=== PATIENT | female | born 1955 | race Caucasian/White ===

== ENCOUNTER 2016-06-30 23:08 | Inpatient (IN) | payer MEDICAID, OTHER ==
[~2016-06-30] VITALS: Ht 165.1 cm; Wt 76.8 kg
[~2016-06-30 23:08] MED LIST: MULT-332
[2016-06-30 23:34] VITALS: Ht 165.1 cm; Wt 76.8 kg
[2016-06-30 23:45] VITALS: BP 137/66; PULSE 70; RESP 18
[2016-07-01] MEDS ORDERED: GABA300C16 PO (00:03)
[2016-07-01] MEDS ORDERED: LANT3I SC (00:03)
[2016-07-01] MEDS ORDERED: ACETAMINOPHEN 500 MG TAB PO PRN (00:30)
[2016-07-01] MEDS: GABAPENTIN 300 MG CAP PO SCH ×2 (00:46→21:10)
[2016-07-01 01:00] VITALS: BP 137/66; RESP 18
[2016-07-01] MEDS ORDERED: DEXTROSE 50% 50 ML SYRINGE IV PRN ×2 (01:00)
[2016-07-01] MEDS ORDERED: GLUCAGON 1 MG INJ IM PRN (01:00)
[2016-07-01] MEDS ORDERED: GLUCOSE GEL 15 GRAM TUBE PO PRN ×2 (01:00)
[2016-07-01] MEDS ORDERED: GLUCOSE GEL 15 GRAM TUBE BUCCAL PRN (01:00)
--- NOTE | 2016-07-01 02:38 | HP ---
Date/Time of Note Date/Time of Note DATE: 07/01/16 TIME: 02:31 Assessment/Plan VTE Prophylaxis VTE Prophylaxis Intervention: ambulation Lines/Catheters IV Catheter Type (from Nrsg): Saline Lock Urinary Cath still in place: Yes Reason Cath still needed: urinary retention, other (indicate) (Neurogenic Bladder - Palacio just placed on 06/28.) Assessment/Plan Assessment/Plan 1) Urinary Retention due to Neurogenic Bladder due to Uncontrolled Diabetes Mellitis - Patient should be able to follow-up with her Personal Care Home Administrator as an outpatient. - The Palacio should stay in for an extended period of time, 2 to 4 weeks, before removing it. And when it is removed, patient should have another kit, just in case she is not able to urinate in a reasonable time, while still at the urologist's office, so that it can be replaced. If it is successfully removed, then being on an alpha lorraine daily may be helpful. - Need to get DM much better controlled, and with an A1c of 15, that will require Insulin. Patient may need to see her PCP for additional education, support and on-going care. HPI/ROS Admit Date/Time Admit Date/Time Jun 30, 2016 at 23:08 Hx of Present Illness Patient is transferred to us from [facility] for Urinary Retention. The following paragraph is from patient's discharge summary/transfer note on 06/30/16. Additional problems include Acute Kidney Injury (with change of Creatinine from 0.5 to 5.87. Previously admitted for urinary retention attributed to autonomic dysfunction inn the setting of long-standing, undiagnosed and untreated DM. Palacio replaced this admission after discontinuation at primary urologist's clinic for unclear reason/indication. Continue indwelling palacio catheter x 2 weeks to help bladder decompress, follow-up with primary urologist around 07/13 to determine next plan. Encourage PO intake in the setting of post-obstructive diuresis. Better glycemic control - see above. ; Hyperkalemia, resolved. ( Patient indorsed not urinating x5 days, Cr elevated. Also with constipation, no BM x 5 days that likely is contributing to hyperkalemia. EKG stable, no peaked T -waves, no ME prolongation. Patient transiently developed hypokalemia in setting of high output autodiuresis, which resolved with repletion.); Hyponatremia (121->122: unknown duration, 06/20 Na+ WNL though on prior admission she was also hyponatremic in the setting of urinary retention, Likely due to overload in the setting of urinary retention. Sodium normalized in 6 H in the setting of diuresis and only half normal saline boluses were used to prevent over-correction.), Poorly Controlled DM (last Hgb A1c = 15. Not taking Metformin at home. Likely with neurogenic bladder. Patient was educated on how to administer subcutaneous insulin. - will discharge with metformin BID and lantus. ); Lower Extremity Swelling (Likely due to volume overload from renal compromise due to obstruction. No chest pain, SOB, no cardiac symptoms, no lung crackles, unlikely cardiac. Symmetric. No calf pain, no immobility, unlikely DVT.) ; Acid Reflux(Likely worsened by distended bladder and colon full of stool ); Constipation (Resolved with Lactulose. No SBO). And what brought patient to [facility] on 06/28 was that an outside clinic removed her palacio catheter but did not give her any other treatment she had reported minimal urine flow, and none for the past 5 days. That original catheter was placed last month for acute urinary retention due to neurogenic bladder from uncontrolled DM ROS Constitutional: No chills, No febrile Eyes: No visual change Respiratory: No shortness of breath Cardiovascular: edema (Never as bad as it was on admission to [facility].), No chest pain, No palpitations Genitourinary: other (Seen at another clinic, approximately 06/24/16, for dysuria , suprapubic pain and hematuria. She as prescribed an antibiotic.) Neurologic: dizziness (intermittent), No focal-weakness, No headache, No other (numbness) PMH/Family/Social Past Surgical History Past Surgical Hx: other (Cesarian Section x 4) Family History Significant Family History: no pertinent family hx Social History . Lives with and children in [place]. Alcohol Use: none Smoking Status: Never smoker Drug Use: none Exam/Review of Systems Vital Signs Vitals Vital Signs Date Time Temp Pulse Resp B/P Pulse Ox O2 Delivery O2 Flow Rate FiO2 06/30/16 23:45 98.3 70 18 137/66 99 Room Air Exam Constitutional: alert, oriented, well developed Head: atraumatic, normocephalic Eyes: nl sclera ENMT: mucosa pink and moist, nl external ears & nose, nl lips & teeth Neck: non-tender, supple Respiratory: clear to auscultation, normal air movement Cardiovascular: nl pulses, regular rate and rhythm Gastrointestinal: nl liver, spleen, non-tender, soft Musculoskeletal: nl extremities to inspection Extremities: normal pulses Neurological: INSURANCE VERIFY REP II-XII intact (grossly), nl speech Lymph: nl lymph nodes (Cervical) Medications Medications Current Medications Diagnostic Test (Pha) (Accucheck) 1 ea 02 XX ; Start 07/02/16 at 02:00 Acetaminophen (Tylenol Tab) 1,000 mg Q6H PRN PO PAIN AND OR ELEVATED TEMP Last administered on 07/01/16 00:46; Admin Dose 1,000 MG; Start 07/01/16 at 00:30 Insulin Glargine (Lantus) 10 unit DAILY SC ; Start 07/01/16 at 09:00 Miscellaneous Information 1 ea NOTE XX ; Start 07/01/16 at 01:00 Glucose (Glutose) 15 gm Q15M PRN PO DECREASED GLUCOSE; Start 07/01/16 at 01:00 Glucose (Glutose) 22.5 gm Q15M PRN PO DECREASED GLUCOSE; Start 07/01/16 at 01: 00 Dextrose (D50w Syringe) 25 ml Q15M PRN IV DECREASED GLUCOSE; Start 07/01/16 at 01:00 Dextrose (D50w Syringe) 50 ml Q15M PRN IV DECREASED GLUCOSE; Start 07/01/16 at 01:00 Glucagon (Glucagen) 1 mg Q15M PRN IM DECREASED GLUCOSE; Start 07/01/16 at 01:00 Glucose (Glutose) 15 gm Q15M PRN BUCCAL DECREASED GLUCOSE; Start 07/01/16 at 01 :00 Gabapentin (Neurontin) 300 mg QHS PO Last administered on 07/01/16 00:46; Admin Dose 300 MG; Start 07/01/16 at 00:40 SHARAN JORGE DO Jul 01, 2016 02:37
[2016-07-01] MEDS ORDERED: METOCLOPRAMIDE 10 MG INJ IV PRN (03:00)
[2016-07-01] MEDS ORDERED: NACL 0.9% 3 ML SYG IV SCH (03:00)
[2016-07-01] MEDS ORDERED: ACETAMINOPHEN 325 MG TAB PO PRN (03:00)
[2016-07-01] MEDS ORDERED: ONDANSETRON 4 MG TAB PO PRN (03:00)
[2016-07-01 07:29] LABS: ADD SCAN DIFF NO
[2016-07-01 07:32] LABS: BASOPHILS % 0.5 % (0.0-2.0); EOSINOPHILS # 0.2 10^3/ul (0.0-0.5); HEMOGLOBIN 10.4 g/dl (12.0-16.0); LYMPHOCYTES # 1.8 10^3/ul (0.8-2.9); LYMPHOCYTES % 33.2 % (15.0-51.0); MEAN CORPUSCULAR HEMOGLOBIN 31.8 pg (29.0-33.0); MEAN CORPUSCULAR HGB CONC 33.5 g/dl (32.0-37.0); MEAN CORPUSCULAR VOLUME 94.8 fl (82.0-101.0); MONOCYTE # 0.6 10^3/ul (0.3-0.9); MONOCYTES % 9.9 % (0.0-11.0); NEUTROPHIL # 2.9 10^3/ul (1.6-7.5); PLATELET COUNT 279 10^3/UL (140-415); RED BLOOD COUNT 3.27 10^6/ul (4.20-5.40); RED CELL DISTRIBUTION WIDTH 11.1 % (11.5-14.5); WHITE BLOOD COUNT 5.5 10^3/ul (4.8-10.8)
[2016-07-01 07:51] LABS: POTASSIUM 3.8 mmol/L (3.5-5.1)
[2016-07-01 07:53] LABS: CREATININE 0.54 mg/dl (0.44-1.00)
[2016-07-01 07:54] LABS: CALCIUM 8.4 mg/dl (8.4-10.2)
[2016-07-01] MEDS: INSULIN ASPART [NOVOLOG] 3 ML PEN SC SCH ×4 (08:00→20:28)
[2016-07-01 08:23] VITALS: BP 124/64; RESP 17; RESP 62
[2016-07-01] MEDS ORDERED: GABAPENTIN 300 MG CAP PO SCH (09:00)
[2016-07-01] MEDS: INSULIN GLARGINE [LANtus] 3 ML PEN SC SCH (10:09)
--- NOTE | 2016-07-01 14:44 | PN ---
Date/Time of Note Date/Time of Note DATE: 07/01/16 TIME: 14:23 Assessment/Plan VTE Prophylaxis VTE Prophylaxis Intervention: SCD's Lines/Catheters IV Catheter Type (from Nrs): Saline Lock Urinary Cath still in place: Yes Reason Cath still needed: urinary retention Assessment/Plan Assessment/Plan 1. Urinary retention due to Neurogenic Bladder, will be discharged with [place] and follow up with urologist 2. Obstructive uropathy with acute renal failure, resolved with [place] 3. DM, on insulin Subjective 24 Hr Interval Summary Free Text/Dictation leg swelling is better no distress Exam/Review of Systems Vital Signs Vitals Vital Signs Date Time Temp Pulse Resp B/P Pulse Ox O2 Delivery O2 Flow Rate FiO2 07/01/16 08:23 98.4 62 62 124/64 97 06/30/16 23:45 Room Air Intake and Output 06/30/16 06/30/16 07/01/16 15:00 23:00 07:00 Intake Total 240 ml Output Total 450 ml Balance -210 ml Exam Constitutional: alert, oriented, well developed Psych: nl mood/affect, no complaints Head: atraumatic, normocephalic Eyes: EOMI, nl conjunctiva, nl lids ENMT: nl external ears & nose, nl lips & teeth, nl nasal mucosa & septum Neck: non-tender, supple Respiratory: clear to auscultation, normal air movement, No congested cough, No crackles/rales, No diminished breath sounds, No intercostal retraction, No labored breathing, No other, No respirations, No tactile fremitus, No wheezing Cardiovascular: regular rate and rhythm, No S3, No S4, No bruits, No diastolic murmur, No edema, No gallop, No irregular rhythm, No jugular venous distention (JVD), No murmurs/extra sounds, No nl pulses, No other, No rub, No systolic murmur Gastrointestinal: nl liver, spleen, non-tender, soft, No ascites, No bowel sounds, No distended, No firm, No hepatomegaly, No mass , No other, No rebound or guarding, No splenomegaly, No surgical scars, No tender Musculoskeletal: nl extremities to inspection Extremities: edema (mild edema on both lower extremities below the knees), normal pulses, No calf tenderness, No clubbing, No cyanosis, No other, No palpable cord, No pitting pedal edema, No tenderness Neurological: MANDREL CLEANER II-XII intact, nl mental status, nl speech, nl strength Skin: nl turgor Results Result Diagram: 07/01/16 0607/01/16 0617 Results 24 hrs Laboratory Tests Test 07/01/16 06:17 07/01/16 08:04 07/01/16 11:54 Anion Gap 11 Basophils # 0.0 Basophils % 0.5 Blood Urea Nitrogen 10 Calcium Level 8.4 Carbon Dioxide Level 29 Chloride Level 107 Creatinine 0.54 Eosinophils # 0.2 Eosinophils % 4.0 Glucose Level 104 Hematocrit 31.0 L Hemoglobin 10.4 L Lymphocytes # 1.8 Lymphocytes % 33.2 Mean Corpuscular Hemoglobin 31.8 Mean Corpuscular Hemoglobin Concent 33.5 Mean Corpuscular Volume 94.8 Mean Platelet Volume 9.0 Monocytes # 0.6 Monocytes % 9.9 Neutrophils # 2.9 Neutrophils % 52.0 Nucleated Red Blood Cells # 0.0 Nucleated Red Blood Cells % 0.0 Platelet Count 279 Potassium Level 3.8 Red Blood Count 3.27 L Red Cell Distribution Width 11.1 L Sodium Level 143 White Blood Count 5.5 Bedside Glucose 108 123 Medications Medications Current Medications Diagnostic Test (Pha) (Accucheck) 1 ea 02 XX ; Start 07/02/16 at 02:00 Acetaminophen (Tylenol Tab) 1,000 mg Q6H PRN PO PAIN AND OR ELEVATED TEMP Last administered on 07/01/16 00:46; Admin Dose 1,000 MG; Start 07/01/16 at 00:30 Insulin Glargine (Lantus) 10 unit DAILY SC Last administered on 07/01/16 10:09 ; Admin Dose 10 UNIT; Start 07/01/16 at 09:00 Miscellaneous Information 1 ea NOTE XX ; Start 07/01/16 at 01:00 Glucose (Glutose) 15 gm Q15M PRN PO DECREASED GLUCOSE; Start 07/01/16 at 01:00 Glucose (Glutose) 22.5 gm Q15M PRN PO DECREASED GLUCOSE; Start 07/01/16 at 01: 00 Dextrose (D50w Syringe) 25 ml Q15M PRN IV DECREASED GLUCOSE; Start 07/01/16 at 01:00 Dextrose (D50w Syringe) 50 ml Q15M PRN IV DECREASED GLUCOSE; Start 07/01/16 at 01:00 Glucagon (Glucagen) 1 mg Q15M PRN IM DECREASED GLUCOSE; Start 07/01/16 at 01:00 Glucose (Glutose) 15 gm Q15M PRN BUCCAL DECREASED GLUCOSE; Start 07/01/16 at 01 :00 Gabapentin (Neurontin) 300 mg QHS PO Last administered on 07/01/16t 00:46; Admin Dose 300 MG; Start 07/01/16 at 00:40 Ondansetron HCl (Zofran Tab) 4 mg Q6H PRN PO NAUSEA AND/OR VOMITING; Start 02/07 at 03:00 Metoclopramide HCl (Reglan) 10 mg Q6H PRN IV NAUSEA AND/OR VOMITING; Start 02/07 at 03:00 Acetaminophen (Tylenol Tab) 650 mg Q6H PRN PO PAIN LEVEL 1-3 OR FEVER; Start at 03:00 GORDON TOTH MD Jul 01, 2016 14:34
[2016-07-01 20:04] VITALS: BP 127/64; RESP 17
[2016-07-02] MEDS: ACCUCHECK XX SCH (00:14)
[2016-07-02 06:29] LABS: POTASSIUM 3.8 mmol/L (3.5-5.1)
[2016-07-02 06:32] LABS: CREATININE 0.61 mg/dl (0.44-1.00)
[2016-07-02 06:33] LABS: CALCIUM 8.8 mg/dl (8.4-10.2)
[2016-07-02 07:40] VITALS: BP 129/63; RESP 16
[2016-07-02] MEDS: INSULIN ASPART [NOVOLOG] 3 ML PEN SC SCH ×4 (07:55→20:15)
[2016-07-02] MEDS: INSULIN GLARGINE [LANtus] 3 ML PEN SC SCH (08:59)
--- NOTE | 2016-07-02 10:30 | PN ---
Date/Time of Note Date/Time of Note DATE: 07/02/16 TIME: 10:27 Assessment/Plan VTE Prophylaxis VTE Prophylaxis Intervention: other Lines/Catheters [facility] Saline Lock Urinary Cath still in place: Yes Reason Cath still needed: urinary retention Assessment/Plan Problems: (1) Urinary retention Status: Acute Comment: The etiology of this is unclear and is been labeled as being part of neurogenic bladder due to diabetes. Reportedly she had a hemoglobin A1c of 15 but according the patient and her daughter she was a newly diagnosed diabetic a month ago. Her to have that degree of neurogenic bladder she should not have significantly other symptoms of diabetic neuropathy. She does not have any evidence of a peripheral neuropathy. I will check orthostatic vital signs but I am questioning this diagnosis as an etiology for the neurogenic bladder. (2) Hemorrhoids Status: Chronic Comment: Stable and not active Qualifiers: Hemorrhoid type: first degree Qualified Code: K64.0 - First degree hemorrhoids (3) Gastroesophageal reflux disease Status: Chronic Comment: Stable Qualifiers: Esophagitis presence: without esophagitis Qualified Code: K21.9 - Gastroesophageal reflux disease without esophagitis (4) Diabetes mellitus type 2 in nonobese Status: Chronic Comment: Her diabetes is remarkably well controlled on single agent therapy using a long-acting insulin. I will recheck her A1c. Ultimately she will need to have careful outpatient evaluation for the her medical problems. Subjective 24 Hr Interval Summary Free Text/Dictation Patient reports she is doing relatively okay. Constitutional: no complaints (No fever chills or sweats) Respiratory: no complaints Cardiovascular: no complaints Gastrointestinal: no complaints Genitourinary: no complaints Neurologic: other (Complains of pain in the lower extremities) Exam/Review of Systems Vital Signs Vitals Vital Signs Date Time Temp Pulse Resp B/P Pulse Ox O2 Delivery O2 Flow Rate FiO2 07/02/16 07:40 98.2 65 16 129/63 98 06/30/16 23:45 Room Air Intake and Output 07/01/16 07/01/16 07/02/16 15:00 23:00 07:00 Intake Total 1050 ml 400 ml Output Total 1500 ml 1300 ml Balance -450 ml -900 ml Exam Constitutional: alert, oriented Neck: non-tender, supple Respiratory: clear to auscultation, normal air movement Cardiovascular: nl pulses, regular rate and rhythm Neurological: ASSISTANT INFANT TEACHER II-XII intact, nl mental status, nl speech, nl strength, other (Patient has normal vibration in brush sensation in the lower extremities. ) Results Result Diagram: 07/01/16 0617 07/02/16 0503 Results 24 hrs Laboratory Tests Test 07/01/16 11:54 07/01/16 16:48 07/01/16 20:01 07/02/16 05:03 Bedside Glucose 123 140 191 Anion Gap 13 Blood Urea Nitrogen 15 Calcium Level 8.8 Carbon Dioxide Level 26 Chloride Level 110 Creatinine 0.61 Glucose Level 128 Potassium Level 3.8 Sodium Level 145 H Test 07/02/16 07:37 Bedside Glucose 116 Medications Medications Current Medications Diagnostic Test (Pha) (Accucheck) 1 ea 02 XX ; Start 07/02/16 at 02:00 Acetaminophen (Tylenol Tab) 1,000 mg Q6H PRN PO PAIN AND OR ELEVATED TEMP Last administered on 07/01/16 00:46; Admin Dose 1,000 MG; Start 07/01/16 at 00:30 Insulin Glargine (Lantus) 10 unit DAILY SC Last administered on 07/02/16 08:59 ; Admin Dose 10 UNIT; Start 07/01/16 at 09:00 Miscellaneous Information 1 ea NOTE XX ; Start 07/01/16 at 01:00 Glucose (Glutose) 15 gm Q15M PRN PO DECREASED GLUCOSE; Start 07/01/16 at 01:00 Glucose (Glutose) 22.5 gm Q15M PRN PO DECREASED GLUCOSE; Start 07/01/16 at 01: 00 Dextrose (D50w Syringe) 25 ml Q15M PRN IV DECREASED GLUCOSE; Start 07/01/16 at 01:00 Dextrose (D50w Syringe) 50 ml Q15M PRN IV DECREASED GLUCOSE; Start 07/01/16 at 01:00 Glucagon (Glucagen) 1 mg Q15M PRN IM DECREASED GLUCOSE; Start 07/01/16 at 01:00 Glucose (Glutose) 15 gm Q15M PRN BUCCAL DECREASED GLUCOSE; Start 07/01/16 at 01 :00 Gabapentin (Neurontin) 300 mg QHS PO Last administered on 07/01/16 21:10; Admin Dose 300 MG; Start 07/01/16 at 00:40 Ondansetron HCl (Zofran Tab) 4 mg Q6H PRN PO NAUSEA AND/OR VOMITING; Start 02/07 at 03:00 Metoclopramide HCl (Reglan) 10 mg Q6H PRN IV NAUSEA AND/OR VOMITING; Start 02/07 at 03:00 Acetaminophen (Tylenol Tab) 650 mg Q6H PRN PO PAIN LEVEL 1-3 OR FEVER; Start at 03:00 NAYA DOHERTY MD Jul 02, 2016 10:30
[2016-07-02 10:42] VITALS: BP 119/65; PULSE 64
[2016-07-02 10:45] VITALS: BP 145/64; PULSE 69
[2016-07-02] MEDS ORDERED: MAGNESIUM CITRATE 300 ML BTL PO ONE (13:30)
[2016-07-02 14:58] LABS: ADD UMIC YES; URINE BILIRUBIN (Dip) NEGATIVE (NEGATIVE); URINE BLOOD (Dip) 2+ (NEGATIVE); URINE COLOR LT. YELLOW (YELLOW); URINE KETONES (Dip) NEGATIVE (NEGATIVE); URINE LEUKOCYTE ESTERASE (Dip) 1+ (NEGATIVE); URINE NITRITE (Dip) NEGATIVE (NEGATIVE); URINE TOTAL PROTEIN (Dip) NEGATIVE (NEGATIVE); URINE UROBILINOGEN (Dip) 0.2 E.U./dL (0.1-1.0)
[2016-07-02 15:53] LABS: SQUAMOUS EPITHELIAL CELL,UR RARE; URINE RBCS 0-2 /HPF (0)
[2016-07-02] MEDS: GABAPENTIN 300 MG CAP PO SCH (20:14)
[2016-07-02 20:31] VITALS: BP 126/65; RESP 18
[2016-07-03] MEDS: ACCUCHECK XX SCH (02:00)
[2016-07-03 05:39] LABS: ADD SCAN DIFF NO
[2016-07-03 05:53] LABS: BASOPHILS % 0.4 % (0.0-2.0); EOSINOPHILS # 0.3 10^3/ul (0.0-0.5); EOSINOPHILS % 3.6 % (0.0-7.0); HEMATOCRIT 32.2 % (37.0-47.0); HEMOGLOBIN 10.7 g/dl (12.0-16.0); LYMPHOCYTES # 2.2 10^3/ul (0.8-2.9); LYMPHOCYTES % 32.4 % (15.0-51.0); MEAN CORPUSCULAR HEMOGLOBIN 31.2 pg (29.0-33.0); MEAN CORPUSCULAR HGB CONC 33.2 g/dl (32.0-37.0); MEAN CORPUSCULAR VOLUME 93.9 fl (82.0-101.0); MEAN PLATELET VOLUME 9.2 fl (7.4-10.4); MONOCYTE # 0.5 10^3/ul (0.3-0.9); MONOCYTES % 7.4 % (0.0-11.0); NEUTROPHIL # 3.8 10^3/ul (1.6-7.5); NEUTROPHILS % 55.8 % (39.0-77.0); PLATELET COUNT 310 10^3/UL (140-415); RED BLOOD COUNT 3.43 10^6/ul (4.20-5.40); RED CELL DISTRIBUTION WIDTH 11.3 % (11.5-14.5); WHITE BLOOD COUNT 6.9 10^3/ul (4.8-10.8)
[2016-07-03 05:56] LABS: CHOL/HDL RATIO 3.3 RATIO
[2016-07-03 05:57] LABS: ALBUMIN 2.8 g/dl (3.3-4.9); POTASSIUM 3.9 mmol/L (3.5-5.1)
[2016-07-03 05:59] LABS: CREATININE 0.56 mg/dl (0.44-1.00)
[2016-07-03 06:00] LABS: ALBUMIN/GLOBULIN RATIO 1.07; BILIRUBIN,INDIRECT 0.1 mg/dl (0-1.1); BILIRUBIN,TOTAL 0.1 mg/dl (0.2-1.3); TOTAL PROTEIN 5.4 g/dl (6.1-8.1)
[2016-07-03 06:01] LABS: CALCIUM 8.7 mg/dl (8.4-10.2)
[2016-07-03 06:12] LABS: T3 UPTAKE 35.2 % (23.5-40.5)
[2016-07-03 06:26] LABS: THYROID STIMULATING HORMONE 1.44 MIU/L (0.465-4.680)
[2016-07-03] MEDS: INSULIN ASPART [NOVOLOG] 3 ML PEN SC SCH ×4 (08:00→20:01)
[2016-07-03 08:14] VITALS: BP 115/56; RESP 16
[2016-07-03] MEDS: INSULIN GLARGINE [LANtus] 3 ML PEN SC SCH (09:02)
--- NOTE | 2016-07-03 09:42 | PN ---
Date/Time of Note Date/Time of Note DATE: 07/03/16 TIME: 09:40 Assessment/Plan VTE Prophylaxis VTE Prophylaxis Intervention: heparin Lines/Catheters IV Catheter Type (from Nrs): Saline Lock Urinary Cath still in place: Yes Reason Cath still needed: urinary retention Assessment/Plan Problems: (1) Diabetes mellitus type 2 in nonobese Status: Chronic Comment: Her blood sugar control on insulin-based protocol in a controlled diet situation is good by Accu-Cheks. However her A1c was 12.9 indicating that she has had not very good control in the recent past. The issue here is that the patient labeled as having neurogenic bladder who does not have evidence of sensory neuropathy and does not have orthostatic vital signs whether or not this bladder issue is due to diabetes. I have significant questions on that (2) Urinary retention Status: Acute Comment: We will try and get the MRI scan of the LS spine. If that can be done she will be discharged will follow up with her neurologist as an outpatient Subjective 24 Hr Interval Summary Respiratory: no complaints Cardiovascular: no complaints Gastrointestinal: no complaints Genitourinary: no complaints Exam/Review of Systems Vital Signs Vitals Vital Signs Date Time Temp Pulse Resp B/P Pulse Ox O2 Delivery O2 Flow Rate FiO2 07/03/16 08:14 98.3 76 16 115/56 94 06/30/16 23:45 Room Air Intake and Output 07/02/16 07/02/16 07/03/16 15:00 23:00 07:00 Intake Total 1110 ml 960 ml Output Total 2000 ml 1800 ml Balance -890 ml -840 ml Exam Constitutional: alert, oriented Respiratory: clear to auscultation, normal air movement Cardiovascular: nl pulses, regular rate and rhythm Gastrointestinal: nl liver, spleen, non-tender, soft Results Result Diagram: 07/03/16 0440 07/03/16 0440 Results 24 hrs Laboratory Tests Test 07/02/16 10:47 07/02/16 11:55 07/02/16 14:45 07/02/16 17:29 Hepatitis B Surface Antigen NEGATIVE Hepatitis C Antibody NEGATIVE Rapid Plasma Reagin NONREACTIVE Thyroid Stimulating Hormone (TSH) 1.740 Bedside Glucose 135 141 Urine Bilirubin NEGATIVE Urine Clarity CLEAR Urine Color LT. YELLOW Urine Glucose 0.1% H Urine Hemoglobin 2+ H Urine Ketones NEGATIVE Urine Leukocyte Esterase 1+ H Urine Microscopic RBC 0-2 Urine Microscopic WBC 2-5 Urine Nitrite NEGATIVE Urine Specific [place] <=1.005 L Urine Squamous Epithelial Cells RARE Urine Total Protein NEGATIVE Urine Urobilinogen 0.2 E.U./dL Urine pH 6.5 Test 07/02/16 20:12 07/03/16 04:40 07/03/16 08:21 Bedside Glucose 195 123 Alanine Aminotransferase (ALT/SGPT) 40 Albumin 2.8 L Albumin/Globulin Ratio 1.07 Alkaline Phosphatase 89 Anion Gap 14 Aspartate Amino Transf (AST/SGOT) 30 Basophils # 0.0 Basophils % 0.4 Blood Urea Nitrogen 13 Calcium Level 8.7 Carbon Dioxide Level 27 Chloride Level 108 Cholesterol Level 159 Cholesterol/HDL Ratio 3.3 Creatinine 0.56 Direct Bilirubin 0.00 Eosinophils # 0.3 Eosinophils % 3.6 Free Thyroxine Index 2.78 Globulin 2.60 Glucose Level 167 HDL Cholesterol 47 Hematocrit 32.2 L Hemoglobin 10.7 L Hemoglobin A1c 12.9 H Indirect Bilirubin 0.1 LDL Cholesterol, Calculated 89 Lymphocytes # 2.2 Lymphocytes % 32.4 Mean Corpuscular Hemoglobin 31.2 Mean Corpuscular Hemoglobin Concent 33.2 Mean Corpuscular Volume 93.9 Mean Platelet Volume 9.2 Monocytes # 0.5 Monocytes % 7.4 Neutrophils # 3.8 Neutrophils % 55.8 Nucleated Red Blood Cells # 0.0 Nucleated Red Blood Cells % 0.0 Platelet Count 310 Potassium Level 3.9 Red Blood Count 3.43 L Red Cell Distribution Width 11.3 L Sodium Level 145 H Thyroid Stimulating Hormone (TSH) 1.440 Thyroxine (T4) 7.9 Total Bilirubin 0.1 L Total Protein 5.4 L Triglycerides Level 115 Triiodothyronine (T3) Uptake 35.2 White Blood Count 6.9 # Medications Medications Current Medications Diagnostic Test (Pha) (Accucheck) 1 ea 02 XX Last administered on 07/03/16 02: 00; Admin Dose 1 EA; Start 07/02/16 at 02:00 Acetaminophen (Tylenol Tab) 1,000 mg Q6H PRN PO PAIN AND OR ELEVATED TEMP Last administered on 07/01/16 00:46; Admin Dose 1,000 MG; Start 07/01/16 at 00:30 Insulin Glargine (Lantus) 10 unit DAILY SC Last administered on 07/03/16 09:02 ; Admin Dose 10 UNIT; Start 07/01/16 at 09:00 Miscellaneous Information 1 ea NOTE XX ; Start 07/01/16 at 01:00 Glucose (Glutose) 15 gm Q15M PRN PO DECREASED GLUCOSE; Start 07/01/16 at 01:00 Glucose (Glutose) 22.5 gm Q15M PRN PO DECREASED GLUCOSE; Start 07/01/16 at 01: 00 Dextrose (D50w Syringe) 25 ml Q15M PRN IV DECREASED GLUCOSE; Start 07/01/16 at 01:00 Dextrose (D50w Syringe) 50 ml Q15M PRN IV DECREASED GLUCOSE; Start 07/01/16 at 01:00 Glucagon (Glucagen) 1 mg Q15M PRN IM DECREASED GLUCOSE; Start 07/01/16 at 01:00 Glucose (Glutose) 15 gm Q15M PRN BUCCAL DECREASED GLUCOSE; Start 07/01/16 at 01 :00 Gabapentin (Neurontin) 300 mg QHS PO Last administered on 07/02/16t 20:14; Admin Dose 300 MG; Start 07/01/16 at 00:40 Ondansetron HCl (Zofran Tab) 4 mg Q6H PRN PO NAUSEA AND/OR VOMITING; Start 02/07 at 03:00 Metoclopramide HCl (Reglan) 10 mg Q6H PRN IV NAUSEA AND/OR VOMITING; Start 02/07 at 03:00 Acetaminophen (Tylenol Tab) 650 mg Q6H PRN PO PAIN LEVEL 1-3 OR FEVER; Start at 03:00 NAYA DOHERTY MD Jul 03, 2016 09:42
--- NOTE | 2016-07-03 15:01 | RADRPT ---
PROCEDURE: MRI OF THE LUMBAR SPINE. CLINICAL INDICATION: Urinary retention TECHNIQUE: Multiple MRI images were obtained utilizing multiple sequences in sagittal and axial akiko helen. Images were interpreted on high-resolution PACS system. No contrast was administered. COMPARISON: None available FINDINGS: The vertebral bodies maintain normal height. There are no acute fractures. Bone marrow signal is wi thin normal limits. There is mild left convex curvature of the lumbar spine. The conus ends at L1-L2. The distal cord is normal in signal and caliber. There is no evidence of arachnoiditis. Paraspinal musculature is unremarkable. There is edema within the posterior paraspin al subcutaneous soft tissues within the lumbar spine. T12-L1: Mild loss of disk height and desiccation with small Schmorl's nodes and anterior endplate os teophytes. Minimal annular bulge but no central canal or neural foraminal narrowing. L1-L2: Mild to moderate loss of disk height with anterior endplate osteophytes. Minimal annular bu lge but no central canal or neural foraminal narrowing. L2-L3: Normal disk height and signal. No annular bulge, central canal narrowing, or neural foraminal narrowing. L3-L4: Normal disk height and signal. Small 3 mm right foraminal disk protrusion but no central can al or neural foraminal narrowing. L4-L5: Normal disk height and signal. Minimal annular bulge with a small central annular fissure bu t no central canal or neural foraminal narrowing. L5-S1: Mild to moderate loss of disk height and desiccation. Broad 2-3 mm annular bulge and bilater al posterolateral osseous ridging with slight narrowing of the bilateral lateral recesses but no cornelia tral canal narrowing. Mild left and no right neural foraminal narrowing. There is a small hemangiom a within the S1 vertebral body. There is moderate bilateral hydronephrosis. RPTAT: ZZ IMPRESSION: 1. Mild to moderate degenerative disk disease at L5-S1 with a broad 2-3 mm annular bulge and disk o steophytes with mild left neural foraminal narrowing. No central canal or right neural foraminal na rrowing. 2. Mild to moderate degenerative disk disease at L1-L2 with a minimal annular bulge but no central canal or neural foraminal narrowing. 3. Small central annular fissure at L4-L5 without central canal narrowing. 4. Moderate bilateral hydronephrosis. .Jeanne Wade MD, MD Date Time Electronically viewed and signed by .Jeanne Wade MD, MD on 07/03/2016 15:01 .T/
[2016-07-03] MEDS: GABAPENTIN 300 MG CAP PO SCH (20:00)
[2016-07-03 23:28] VITALS: BP 133/75; RESP 16
[2016-07-04] MEDS: ACCUCHECK XX SCH (02:00)
[2016-07-04] MEDS: INSULIN ASPART [NOVOLOG] 3 ML PEN SC SCH ×3 (08:00→17:37)
[2016-07-04 08:15] VITALS: BP 112/65; RESP 18
[2016-07-04] MEDS ORDERED: INSULIN GLARGINE [LANtus] 3 ML PEN SC SCH (09:00)
--- NOTE | 2016-07-04 16:14 | DS ---
Date/Time of Note Date/Time of Note DATE: 07/04/16 TIME: 16:09 Discharge Summary Admission/Discharge Info Admit Date/Time Jun 30, 2016 at 23:08 Discharge Date/Time Final Diagnosis 1. Urinary retention due to Neurogenic Bladder, discharged with Palacio and follow up with urologist 2. Obstructive uropathy with acute renal failure, resolved with Palacio 3. DM, on insulin Patient Condition: Stable Hx of Present Illness Patient is transferred to us from [facility] for Urinary Retention. The following paragraph is from patient's discharge summary/transfer note on 06/30/16. Additional problems include Acute Kidney Injury (with change of Creatinine from 0.5 to 5.87. Previously admitted for urinary retention attributed to autonomic dysfunction inn the setting of long-standing, undiagnosed and untreated DM. Palacio replaced this admission after discontinuation at primary urologist's clinic for unclear reason/indication. Continue indwelling palacio catheter x 2 weeks to help bladder decompress, follow-up with primary urologist around 07/13 to determine next plan. Encourage PO intake in the setting of post-obstructive diuresis. Better glycemic control - see above. ; Hyperkalemia, resolved. ( Patient indorsed not urinating x5 days, Cr elevated. Also with constipation, no BM x 5 days that likely is contributing to hyperkalemia. EKG stable, no peaked T -waves, no SD prolongation. Patient transiently developed hypokalemia in setting of high output autodiuresis, which resolved with repletion.); Hyponatremia (121->122: unknown duration, 06/20 Na+ WNL though on prior admission she was also hyponatremic in the setting of urinary retention, Likely due to overload in the setting of urinary retention. Sodium normalized in 6 H in the setting of diuresis and only half normal saline boluses were used to prevent over-correction.), Poorly Controlled DM (last Hgb A1c = 15. Not taking Metformin at home. Likely with neurogenic bladder. Patient was educated on how to administer subcutaneous insulin. - will discharge with metformin BID and lantus. ); Lower Extremity Swelling (Likely due to volume overload from renal compromise due to obstruction. No chest pain, SOB, no cardiac symptoms, no lung crackles, unlikely cardiac. Symmetric. No calf pain, no immobility, unlikely DVT.) ; Acid Reflux(Likely worsened by distended bladder and colon full of stool ); Constipation (Resolved with Lactulose. No SBO). And what brought patient to [facility] on 06/28 was that an outside clinic removed her palacio catheter but did not give her any other treatment she had reported minimal urine flow, and none for the past 5 days. That original catheter was placed last month for acute urinary retention due to neurogenic bladder from uncontrolled DM Hospital Course Patient has chronic urinary retention due to neurogenic bladder. Acute renal failure is totally recovered with Palacio Catheter. She will be discharged with Palacio catheter and follow up with urology outpatient. Patient had MRI of lumbar spine that revealed multilevel disc disease but no central canal stenosis. [place] [id number] Radiology Main Line: [phone] DIAGNOSTIC IMAGING REPORT Patient: DAYTON MAX : 1955 Age: 60 Sex: F MR #: [id number] DOS: 07/03/16 0000 Ordering MD: NAYA DOHERTY MD Location: PP2 Room/Bed: [facility] PROCEDURE: MRI OF THE LUMBAR SPINE. CLINICAL INDICATION: Urinary retention TECHNIQUE: Multiple MRI images were obtained utilizing multiple sequences in sagittal and axial planes. Images were interpreted on high-resolution PACS system. No contrast was administered. COMPARISON: None available FINDINGS: The vertebral bodies maintain normal height. There are no acute fractures. Bone marrow signal is within normal limits. There is mild left convex curvature of the lumbar spine. The conus ends at L1-L2. The distal cord is normal in signal and caliber. There is no evidence of arachnoiditis. Paraspinal musculature is unremarkable. There is edema within the posterior paraspinal subcutaneous soft tissues within the lumbar spine. T12-L1: Mild loss of disk height and desiccation with small Schmorl's nodes and anterior endplate osteophytes. Minimal annular bulge but no central canal or neural foraminal narrowing. L1-L2: Mild to moderate loss of disk height with anterior endplate osteophytes. Minimal annular bulge but no central canal or neural foraminal narrowing. L2-L3: Normal disk height and signal. No annular bulge, central canal narrowing , or neural foraminal narrowing. L3-L4: Normal disk height and signal. Small 3 mm right foraminal disk protrusion but no central canal or neural foraminal narrowing. L4-L5: Normal disk height and signal. Minimal annular bulge with a small central annular fissure but no central canal or neural foraminal narrowing. L5-S1: Mild to moderate loss of disk height and desiccation. Broad 2-3 mm annular bulge and bilateral posterolateral osseous ridging with slight narrowing of the bilateral lateral recesses but no central canal narrowing. Mild left and no right neural foraminal narrowing. There is a small hemangioma within the S1 vertebral body. There is moderate bilateral hydronephrosis. RPTAT: ZZ IMPRESSION: 1. Mild to moderate degenerative disk disease at L5-S1 with a broad 2-3 mm annular bulge and disk osteophytes with mild left neural foraminal narrowing. No central canal or right neural foraminal narrowing. 2. Mild to moderate degenerative disk disease at L1-L2 with a minimal annular bulge but no central canal or neural foraminal narrowing. 3. Small central annular fissure at L4-L5 without central canal narrowing. 4. Moderate bilateral hydronephrosis. .Jeanne Wade MD, MD Date Time Electronically viewed and signed by .Jeanne Wade MD, MD on 07/03/2016 15: 01 .T/ CC: NAYA DOHERTY MD Home Meds Reported Medications Gabapentin* (Gabapentin*) 300 Mg Capsule, 300 MG PO DAILY, #60 CAP 07/01/16 Insulin Glargine* (Lantus*) 100 Unit/Ml Soln, 10 UNIT SC DAILY, #1 VIAL 07/01/16 Discontinued Reported Medications Multivit, Iron, Min #3, Fa (Central Charity Tablet) 1 Tab Tablet 08/20/10 Follow-up Plan Urology in one week PCP in one week Pending Labs Laboratory Tests Test 07/03/16 17:09 07/03/16 19:57 07/04/16 01:18 07/04/16 07:46 Bedside Glucose 118mg/dL (70-220) 229mg/dL (70-220) 133mg/dL (70-220) 127mg/dL (70-220) Test 07/04/16 11:30 Bedside Glucose 141mg/dL (70-220) GORDON TOTH MD Jul 04, 2016 16:13
== END 2016-07-04 19:19 | disposition home or self-care (01) | DRG 74 ==
LOC: PP2 23:08
PROVIDERS: ADMIT Family Medicine; ATTEND Family Medicine
DX: E11.49 Type 2 diabetes mellitus with other diabetic neurological complication (principal); N17.9 Acute kidney failure, unspecified; E11.65 Type 2 diabetes mellitus with hyperglycemia; N13.8 Other obstructive and reflux uropathy; N31.8 Other neuromuscular dysfunction of bladder; R33.8 Other retention of urine; N31.2 Flaccid neuropathic bladder, not elsewhere classified; K21.9 Gastro-esophageal reflux disease without esophagitis
CPT/HCPCS: 72148; 80048; 80053; 80061; 81001; 81003; 82962; 83036; 84436; 84443; 84479; 85025; 86592; 86803; 87086; 87340; J1815

== ENCOUNTER 2017-05-08 14:01 | Emergency (ER) | END 2017-05-08 18:35 | disposition home or self-care (01) ==

== ENCOUNTER 2017-06-23 19:55 | Inpatient (IN) | END 2017-06-27 19:45 | disposition home or self-care (01) | DRG 698 ==